=== PATIENT | female | born 1950 | race African-American/Black ===

== ENCOUNTER 2023-05-05 15:45 | Emergency (ER) | payer MEDICAID ==
[~2023-05-05] VITALS: Ht 165.1 cm; Wt 81.6 kg
[2023-05-05 15:55] VITALS: BP 153/95; PULSE 82; RESP 16; TEMP 98.5; O2SAT 99
[2023-05-05] MEDS ORDERED: FLOV44 INH (17:21)
[2023-05-05] MEDS ORDERED: OLME1TAB88 MT (17:21)
== END 2023-05-05 18:59 | disposition home or self-care (01) ==
LOC: ER 15:45
DX: I10 Essential (primary) hypertension (principal); Z76.0 Encounter for issue of repeat prescription; Z90.710 Acquired absence of both cervix and uterus; Z98.890 Other specified postprocedural states; Z88.5 Allergy status to narcotic agent
CPT/HCPCS: 99281; Z7610 ×2

== ENCOUNTER 2023-08-19 18:21 | Emergency (ER) | payer MEDICAID, MEDICARE ==
[~2023-08-19] VITALS: Ht 167.6 cm; Wt 72.0 kg
[~2023-08-19 18:21] MED LIST: FLOV44 INH; OLME1TAB88 MT
[2023-08-19 18:27] VITALS: BP 159/75; PULSE 106; RESP 20; TEMP 98.6; O2SAT 100
[2023-08-19 19:06] LABS: CLARITY URINE TURBID (CLEAR); COLOR URINE DARK YELLOW (YELLOW); GLUCOSE URINE NEGATIVE (NEGATIVE); KETONES URINE 1+ (NEGATIVE); LEUKOCYTE ESTERASE URINE 3+ (NEGATIVE); NITRITE URINE POSITIVE (NEGATIVE); OCCULT BLOOD URINE 3+ (NEGATIVE); PROTEIN URINE 1+ (NEGATIVE); SPECIFIC GRAVITY URINE 1.035 (1.005-1.030)
[2023-08-19 19:26] LABS: BACTERIA URINE 3+; RBC URINE 25-50 /hpf (0-2); SQUAMOUS EPITHELIAL CELL URINE 1+ /lpf (RARE/1+)
[2023-08-19 19:27] LABS: WBC URINE TNTC /hpf (0-2)
[2023-08-19 19:46] LABS: HEMATOCRIT. 39.6 % (36.0-48.0); HEMOGLOBIN. 13.1 g/dL (12.0-16.0); MEAN CORPUSCULAR HEMOGLOBIN 31.8 pg (28.0-32.0); MEAN CORPUSCULAR HGB CONC 33.1 g/dL (31.0-37.0); MEAN CORPUSCULAR VOLUME 96.1 fL (81.0-99.0); MEAN PLATELET VOLUME 8.1 fl (7.4-10.4); PLATELET 259 x1000/uL (130-400); RED BLOOD CELL COUNT 4.13 mill/uL (4.2-5.4); WHITE BLOOD COUNT 8.8 x1000/uL (4.5-11.0)
[2023-08-19 19:52] LABS: DIFFERENTIAL COMMENT 1
[2023-08-19 20:01] LABS: ALANINE AMINOTRANSFERASE 18 IU/L (10-49); ALBUMIN 4.4 g/dL (3.2-4.8); ASPARTATE AMINOTRANSFERASE 20 IU/L (<34); BILIRUBIN TOTAL 0.3 mg/dL (0.1-1.0); CALCIUM 9.6 mg/dL (8.7-10.4); CARBON DIOXIDE 27 mEq/L (21-32); CHLORIDE 110 mEq/L (98-107); GLUCOSE 92 mg/dL (70-105); POTASSIUM 4.2 mEq/L (3.5-5.1); SODIUM 145 mEq/L (136-145); UREA NITROGEN BLOOD 23 mg/dL (9-23)
[2023-08-19 20:22] LABS: PLATELET ESTIMATE NORMAL
== END 2023-08-19 23:15 | disposition left against medical advice (07) ==
LOC: ER 18:21
DX: R05.9 Cough, unspecified (principal); Z53.21 Procedure and treatment not carried out due to patient leaving prior to being seen by health care provider
CPT/HCPCS: 36415; 71045; 80053; 81003; 85025; 99281

== ENCOUNTER 2023-08-21 17:40 | Emergency (ER) | payer MEDICARE ==
[~2023-08-21] VITALS: Ht 157.5 cm; Wt 68.0 kg
[2023-08-21 17:44] VITALS: BP 149/94; PULSE 105; RESP 20; TEMP 98.9; O2SAT 98
[2023-08-21 18:46] LABS: BASOPHILS % 0.7 % (0.0-2.0); HEMATOCRIT. 38.2 % (36.0-48.0); HEMOGLOBIN. 13.2 g/dL (12.0-16.0); LYMPHOCYTES % 21.6 % (20.0-50.0); MEAN CORPUSCULAR HEMOGLOBIN 32.2 pg (28.0-32.0); MEAN CORPUSCULAR HGB CONC 34.5 g/dL (31.0-37.0); MEAN CORPUSCULAR VOLUME 93.3 fL (81.0-99.0); MEAN PLATELET VOLUME 8.3 fl (7.4-10.4); MONOCYTES % 8.2 % (2.0-8.0); NEUTROPHILS % 68.5 % (40.0-76.0); PLATELET 268 x1000/uL (130-400); RED CELL DISTRIBUTION WIDTH 13.8 % (11.6-14.6); WHITE BLOOD COUNT 10.3 x1000/uL (4.5-11.0)
[2023-08-21 19:07] LABS: ALANINE AMINOTRANSFERASE 19 IU/L (10-49); ALBUMIN 4.5 g/dL (3.2-4.8); ASPARTATE AMINOTRANSFERASE 22 IU/L (<34); BILIRUBIN TOTAL 0.3 mg/dL (0.1-1.0); CALCIUM 9.9 mg/dL (8.7-10.4); CARBON DIOXIDE 26 mEq/L (21-32); CHLORIDE 112 mEq/L (98-107); GLUCOSE 98 mg/dL (70-105); PROTEIN TOTAL 7.4 g/dL (6.0-8.3); SODIUM 146 mEq/L (136-145); UREA NITROGEN BLOOD 20 mg/dL (9-23)
[2023-08-21 19:16] LABS: TROPONIN I HIGH SENSITIVITY < 4 ng/L (3.0-34)
[2023-08-21] MEDS ORDERED: P20 PO (19:29)
[2023-08-21] MEDS ORDERED: AZIT500T8 MT (19:29)
[2023-08-21] MEDS ORDERED: ALBU6.7H15 INH (19:29)
[2023-08-21] MEDS ORDERED: CEFP100T8 MT (19:46)
== END 2023-08-21 20:16 | disposition home or self-care (01) ==
LOC: ER 17:40
DX: J40 Bronchitis, not specified as acute or chronic (principal); N39.0 Urinary tract infection, site not specified; I10 Essential (primary) hypertension; Z88.5 Allergy status to narcotic agent
CPT/HCPCS: 36415; 71045; 80053; 83880; 84484; 85025; 99284

== ENCOUNTER 2024-04-20 16:59 | Emergency (ER) | payer MEDICARE ==
[~2024-04-20] VITALS: Ht 165.1 cm; Wt 82.0 kg
[~2024-04-20 16:59] MED LIST changes: +ALBU6.7H15 INH; +AZIT500T8 MT; +CEFP100T8 MT; +P20 PO
[2024-04-20 17:07] VITALS: TEMP 98.4; O2SAT 95
[2024-04-20] MEDS ORDERED: IBUPROFEN 400MG TABLET PO ONE (18:15)
[2024-04-20 20:03] VITALS: BP 177/88; PULSE 105; RESP 18
[2024-04-20] MEDS: IBUPROFEN 400MG TABLET PO NR (20:03)
[2024-04-20] MEDS ORDERED: IBUP-2028 MT (22:18)
== END 2024-04-20 23:08 | disposition left against medical advice (07) ==
LOC: ER 16:59
DX: S32.028A Other fracture of second lumbar vertebra, initial encounter for closed fracture (principal); I10 Essential (primary) hypertension; M25.561 Pain in right knee; Z90.710 Acquired absence of both cervix and uterus; Z79.899 Other long term (current) drug therapy; W18.39XA Other fall on same level, initial encounter; Y93.89 Activity, other specified; Y92.89 Other specified places as the place of occurrence of the external cause; Y99.8 Other external cause status
CPT/HCPCS: 72100; 72131; 73560; 99284